=== PATIENT | female | born 1950 | race Caucasian/White ===

== ENCOUNTER 2018-08-26 15:13 | Emergency (ER) | payer OTHER ==
[2018-08-26 15:25] VITALS: BP 160/76; PULSE 76; TEMP 98.1; BMI 27.4
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
[2018-08-26] MEDS ORDERED: IBUPROFEN 400 MG TABLET (FP) PO ONE ×2 (16:08→16:11)
[2018-08-26] MEDS ORDERED: morphine CARPU-JECT 2 MG/1 ML DISP.SYRIN IVPUSH ONE (16:29)
[2018-08-26] MEDS ORDERED: morphine CARPU-JECT 2 MG/1 ML DISP.SYRIN IM ONE (16:40)
[2018-08-26] MEDS ORDERED: MORPHINE SULFATE 2 MG/ML VIAL ONE (17:02)
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
[2018-08-26 20:02] LABS: BASO % 0.2 % (0-2.0); EOS % 0.2 % (0-4.5); HEMATOCRIT 39.1 % (32.4-45.2); HEMOGLOBIN 13.6 GM/dL (10.7-15.3); LYMPH % 7.4 % (8-40); MCH 31.7 pg (25.7-33.7); MCHC 34.9 g/dl (32.0-36.0); MEAN CELL VOLUME 90.9 fl (80-96); MEAN PLT VOLUME 7.7 fl (7.5-11.1); MONO % 6.4 % (3.8-10.2); NEUT % 85.8 % (42.8-82.8); PLATELET COUNT 304 K/MM3 (134-434); RDW 14.7 % (11.6-15.6); WHITE BLOOD COUNT 10.3 K/mm3 (4.0-10.0)
[2018-08-26 20:20] LABS: ALBUMIN 3.8 g/dl (3.4-5.0); ALK PHOS 170 U/L (45-117); ANION GAP 8 MMOL/L (8-16); BILIRUBIN,TOTAL 0.2 mg/dL (0.2-1); BLOOD UREA NITROGEN 13 mg/dL (7-18); CALCIUM 8.4 mg/dL (8.5-10.1); CHLORIDE 109 mmol/L (98-107); CO2 23 mmol/L (21-32); CREATININE 0.5 mg/dL (0.55-1.3); GLUCOSE,RANDOM 129 mg/dL (74-106); POTASSIUM 3.5 mmol/L (3.5-5.1); SGOT/AST 65 U/L (15-37); SGPT/ALT 85 U/L (13-61); SODIUM 140 mmol/L (136-145); TOT PROT 7.4 g/dl (6.4-8.2)
[2018-08-26 20:26] LABS: INR 0.87 (0.83-1.09); PROTHROMBIN TIME (PATIENT) 10.2 SEC (9.7-13.0)
[2018-08-26 20:28] LABS: ACTIVATED PTT 27.3 SECONDS (25.2-36.5)
[2018-08-26 20:59] LABS: URINE APPEARANCE CLEAR; URINE BILIRUBIN NEGATIVE (<2.0 mg/dL); URINE COLOR YELLOW; URINE GLUCOSE (UA) 2+ (NEGATIVE); URINE KETONE NEGATIVE (NEGATIVE); URINE LEUK ESTERASE TRACE (NEGATIVE); URINE NITRITE NEGATIVE (NEGATIVE); URINE PROTEIN NEGATIVE (NEGATIVE)
[2018-08-26 21:19] LABS: EPI CELLS RARE /HPF (FEW); URINE BACTERIA RARE /hpf (NONE SEEN); URINE MUCUS RARE
== END 2018-08-26 23:40 | disposition home or self-care (01) ==
LOC: JER 15:13
PROC: 2W3DX1Z Immobilization of Left Lower Arm using Splint (ICD-10-PCS; principal; 2018-08-26)
DX: S52.692A Other fracture of lower end of left ulna, initial encounter for closed fracture (principal); S00.12XA Contusion of left eyelid and periocular area, initial encounter; V03.10XA Pedestrian on foot injured in collision with car, pick-up truck or van in traffic accident, initial encounter; Y92.414 Local residential or business street as the place of occurrence of the external cause; Y93.01 Activity, walking, marching and hiking; Y99.8 Other external cause status; E11.9 Type 2 diabetes mellitus without complications; E78.5 Hyperlipidemia, unspecified
CPT/HCPCS: 36415; 70450-TC; 70486-TC; 71260-TC; 72125-TC; 73030-TC-RT-FY; 73070-TC-LT-FY; 73090-TC-LT-FY; 73110-TC-LR-FY; 73130-TC-LT-FY; 74177-TC; 80053; 81003; 81015; 85025; 85610; 85730; 99282-25

== ENCOUNTER 2018-09-11 16:53 | Emergency (ER) | payer OTHER ==
[2018-09-11 17:16] VITALS: BP 154/92; PULSE 84; TEMP 98.6; BMI 27.2
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
[2018-09-11] MEDS ORDERED: KETOROLAC TROMETHAMINE 30 MG/1 ML VIAL IM ONE (18:07)
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
[2018-09-11] MEDS ORDERED: KETOROLAC TROMETHAMINE 30 MG/1 ML VIAL ONE (18:27)
== END 2018-09-11 18:35 | disposition home or self-care (01) ==
LOC: JERFT 16:53
PROC: 3E0233Z Introduction of Anti-inflammatory into Muscle, Percutaneous Approach (ICD-10-PCS; principal; 2018-09-11)
DX: S52.602G Unspecified fracture of lower end of left ulna, subsequent encounter for closed fracture with delayed healing (principal); M79.602 Pain in left arm
CPT/HCPCS: 99282-25

== ENCOUNTER 2021-08-15 14:20 | Emergency (ER) | payer OTHER ==
[2021-08-15 14:30] VITALS: TEMP 98.5; BMI 29.2
[2021-08-15 18:20] LABS: INR 0.93 (0.83-1.09); PROTHROMBIN TIME (PATIENT) 10.7 SEC (9.7-13.0)
[2021-08-15 18:22] LABS: BASO % 0.6 % (0-2.0); EOS % 0.7 % (0-4.5); HEMATOCRIT 40.8 % (32.4-45.2); HEMOGLOBIN 13.7 GM/dL (10.7-15.3); LYMPH % 20.7 % (8-40); MCH 30.7 pg (25.7-33.7); MCHC 33.5 g/dl (32.0-36.0); MEAN CELL VOLUME 91.8 fl (80-96); MONO % 7.7 % (3.8-10.2); NEUT % 70.3 % (42.8-82.8); PLATELET COUNT 303 10^3/uL (134-434); RBC 4.45 M/mm3 (3.60-5.2); RDW 14.3 % (11.6-15.6); WHITE BLOOD COUNT 5.2 K/mm3 (4.0-10.0)
[2021-08-15 18:23] LABS: ACTIVATED PTT 28.6 SECONDS (25.2-36.5)
[2021-08-15 18:32] LABS: CHLORIDE 110 mmol/L (98-107); SODIUM 141 mmol/L (136-145)
[2021-08-15 18:34] LABS: CALCIUM 9.1 mg/dL (8.5-10.1)
[2021-08-15 18:35] LABS: ALBUMIN 3.8 g/dl (3.4-5.0); ANION GAP 7 MMOL/L (8-16); CO2 24 mmol/L (21-32); GLUCOSE,RANDOM 96 mg/dL (74-106)
[2021-08-15 18:38] LABS: CREATININE 0.4 mg/dL (0.55-1.3); SGOT/AST 38 U/L (15-37); SGPT/ALT 36 U/L (13-61)
[2021-08-15 18:40] LABS: BILIRUBIN,TOTAL 0.3 mg/dL (0.2-1); TOT PROT 7.6 g/dl (6.4-8.2)
[2021-08-15 18:41] LABS: ALK PHOS 169 U/L (45-117)
[2021-08-15] MEDS ORDERED: ASPIRIN 325 MG TABLET PO ONE (18:51)
[2021-08-15] MEDS ORDERED: ASPIRIN 325 MG ENTERIC COATED TABLET (FP) ONE (19:14)
[2021-08-15 19:37] VITALS: BP 147/89; PULSE 82
== END 2021-08-15 19:25 | disposition home or self-care (01) ==
LOC: JER 14:20
DX: R20.0 Anesthesia of skin (principal)
CPT/HCPCS: 36415; 70450-TC; 70551-TC; 71045-TC-FY; 80053; 82550; 82962; 84443; 84484; 85025; 85610; 85730; 86850; 86900; 86901; 93005; 93010; 99285-25